=== PATIENT | female | born 1985 | race Caucasian/White ===

== ENCOUNTER 2025-09-14 19:47 | Emergency (ER) | payer BC, SELFPAY ==
[2025-09-14 19:49] VITALS: BP 128/95
[2025-09-14] MEDS: NSS 500 IV (21:40)
[2025-09-14 22:05] LABS: Hematocrit 37.8 % (37.0-47.0); Hemoglobin 12.1 g/dL (12.0-16.0); Mean Corp Hgb Conc. 32.0 g/dL (33.0-37.0); Mean Corpuscular Volume 66.9 fL (81.0-99.0); Platelet Count 83 10^3/uL (130-400); Red Cell Dist. Width 14.7 % (11.5-14.5)
[2025-09-14 22:15] LABS: ALT (SGPT) 98 U/L (0-35); AST (SGOT) 165 U/L (14-36); Albumin 4.1 g/dl (3.5-5.0); Alkaline Phosphatase 78 U/L (38-126); Blood Urea Nitrogen 17 mg/dl (7-17); Calcium 9.2 mg/dl (8.4-10.2); Carbon Dioxide 24 mmol/L (22-30); Chloride 106 mmol/L (98-107); Glucose 86 mg/dl (70-99); Potassium 4.3 mmol/L (3.5-5.1); Sodium 137 mmol/L (135-145); Total Protein 7.3 g/dl (6.3-8.2); eGFR > 60.00
[2025-09-14 23:06] LABS: Nucleated Red Blood Cells % 0 %
--- NOTE | 2025-09-14 23:17 | ED.GENMED ---
History of Present Illness
General
Chief Complaint: Cold/Flu/URI Symptoms
Source: patient
Exam Limitations: none
Time Seen by Provider: 09/14/25 21:28
Nursing documentation reviewed up to this point in time: agreed with
History of Present Illness
History of Present Illness:
Patient to emergency department for evaluation. States she was diagnosed with influenza by urgent care yesterday. She was told to come to the emergency department for any symptoms of weakness or dehydration. She reports feeling weak and
dehydrated. Brought self to the emergency department for evaluation.
Past History
Past History
ED Past Medical History: Cancer (Leukemia -treated 5 years ago)
Review of Systems
Review of Systems
Allergies reviewed?: Yes
All Other Systems: ROS reviewed and negative except as documented in HPI and ROS
Constitutional: Reports fever and fatigue
EENT: Reports no symptoms
Respiratory: Reports cough
Cardiac: Reports no symptoms
ABD/GI: Reports anorexia
: Reports no symptoms
Musculoskeletal: Reports no symptoms
Skin: Reports no symptoms
Neurological: Reports weakness
Psychiatric: Reports no symptoms
Phy Exam
General Physical Exam
General Presentation: well appearing and mild distress
General age: appears stated age
General Skin: warm and dry
General Habitus: normal
General Mental: alert
Cardiovascular Exam
Cardiovascular Exam: regular rate/rhythm and no edema
Pulmonary Exam
Pulmonary Exam: lungs clear and no respiratory distress
Musculoskeletal Exam
Musculoskeletal Exam: full ROM and neuro vasc intact
Skin Exam
Skin Exam: normal color, warm/dry and no rash
Psychiatric Exam
Psychiatric Exam: normal mood/affect
Course
Orders/Labs/Results
Orders:
Orders
09/14/25 21:36
0.9% Sodium Chloride 500 ml [Nss] 500 ml IV BOLUS
09/14/25 21:40
Complete Blood Count/With Diff Urgent
Comprehensive Metabolic Panel Urgent
Abnormal Lab Results
09/14/25
21:40
WBC 3.4 L 10^3/uL
(4.8-10.8)
RBC 5.65 H 10^6/uL
(4.20-5.40)
MCV 66.9 L fL
(81.0-99.0)
MCH 21.4 L pg
(27.0-31.0)
MCHC 32.0 L g/dL
(33.0-37.0)
RDW 14.7 H %
(11.5-14.5)
Plt Count 83 L 10^3/uL
(130-400)
MPV 11.0 H fL
(7.4-10.4)
Absolute Neuts (auto) 1.0 L 10^3/uL
(1.4-6.5)
Neutrophils % 30.3 L %
(42.2-75.2)
Monocytes % 18.5 H %
(1.7-9.3)
AST 165 H U/L
(14-36)
ALT 98 H U/L
(0-35)
09/14/25 21:40
09/14/25 21:40
Vital Signs
Initial and Last Documented VS:
Initial Vital Signs
Temp Pulse Resp BP Pulse Ox
98.2 F 99 20 128/95 99
09/14/25 19:49 09/14/25 19:49 09/14/25 19:49 09/14/25 19:49 09/14/25 19:49
Last Documented Vital Signs
Temp Pulse Resp BP Pulse Ox
98.2 F 87 20 125/91 95
09/14/25 19:49 09/14/25 23:25 09/14/25 23:25 09/14/25 23:25 09/14/25 23:25
*Radiology
Radiology exam reviewed: radiology read reviewed
*Pulse Oximetry
SaO2: 99
Oxygen Mode of Delivery: Room air
Patient hypoxic: no
*Critical Care Note
Total Time (30-74mins, 75-104mins- exclusive of procedures): Not Applicable
Update Note
Update Note:
Patient to emergency department for evaluation with complaint of feeling weak and dehydrated. She was diagnosed yesterday at urgent care with influenza. Taking Tylenol as needed for fever and bodyaches. On exam she is awake alert and oriented, in
no visible distress. Vital signs are stable she remains afebrile. Labs reviewed WBC 3.4 noted mild elevation in AST ALT 165/98. Discussed lab results with her. She has a distant history of leukemia. She was given a copy of her lab results and
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 She was given IV fluids here and reports improvement in her symptoms. She will be discharged home today. She was instructed to increase her fluid intake. Continue with Tylenol as needed for fever body aches.
She was given instructions on signs and symptoms to return to the emergency department and she is agreeable to this plan.
ED Attending Note
-
Portions of this chart may have been created with voice recognition software.� Occasional wrong word or��sound alike� substitutions may have occurred due to the inherent limitations of voice recognition software.
Discharge Plan
Departure
Patient Disposition: Home (Routine Discharge)
Date of Disposition: 09/14/25
Time of Disposition: 22:54
Patient with high blood pressure during this ER visit?: No
Condition: Good
Covid-19: Not Applicable
Discharge Problem:
Viral illness
Instructions: Fever, Adult (DC), Viral Syndrome (DC)
Referrals:
NONE,* [Family Provider, Internal Medicine]
Stand Alone Forms: Return to Work
Activity Restrictions/Additional Instructions:
Follow-up with your family doctor. Return to the emergency department for any changes in/worsening of your symptoms
Interventions
Interventions:
*Risk Screen - Suicide Last Done: 09/14/25 19:49
*General Assessment Last Done: 09/14/25 19:49
*Neglect/Abuse Screening Last Done: 09/14/25 19:49
*ED COVID-19 Vaccine History Last Done: 09/14/25 19:49
*ED Influenza Vaccine History Last Done: 09/14/25 19:49
[facility] Fall Risk Assessment Tool Last Done: 09/14/25 20:50
*Nursing Disposition Last Done: 09/14/25 23:25
ED- Pulmonary Assessment Last Done: 09/14/25 20:50
Discharge Date and Time
Discharge Date/Time: 09/14/25 23:26
Print Language: AZERI
[2025-09-14 23:25] VITALS: BP 125/91
== END 2025-09-14 23:26 | disposition home or self-care (01) ==
LOC: EMR 19:47
PROVIDERS: Nurse Practitioner; EMERGENCY PHYSICIAN Emergency Medicine
DX: B34.9 Viral infection, unspecified (principal); E86.0 Dehydration; Z85.6 Personal history of leukemia
CPT/HCPCS: 99283; 96360; 80053; 85025